=== PATIENT | male | born 1940 | race Caucasian/White ===

== ENCOUNTER 2019-12-04 21:04 | Inpatient (IN) | payer MEDICARE, OTHER ==
[~2019-12-04] VITALS: Ht 165.1 cm; Wt 47.3 kg
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
[2019-12-04 21:48] LABS: BASO # 0.1 x10^3/uL (0.0-0.2); BASO % 1 % (0-3); EOS # 0.2 x10^3/uL (0.0-0.7); EOS % 3 % (0-3); HEMATOCRIT 42.4 % (39.0-53.0); HEMOGLOBIN 13.9 g/dL (13.0-17.5); LYMPH # 1.6 x10^3/uL (1.0-4.8); LYMPH % 23 % (24-48); MEAN CORPUSCULAR HEMOGLOBIN 30 pg (25-35); MEAN CORPUSCULAR HGB CONC 33 g/dL (31-37); MEAN CORPUSCULAR VOLUME 91 fL (79-100); MONO # 0.6 x10^3/uL (0.0-1.1); MONO % 9 % (0-9); NEUT # 4.3 x10^3uL (1.8-7.7); NEUT % 64 % (31-73); PLATELET COUNT 183 x10^3/uL (140-400); RED BLOOD COUNT 4.64 x10^6/uL (4.30-5.70); RED CELL DISTRIBUTION WIDTH 14.7 % (11.5-14.5); WHITE BLOOD COUNT 6.7 x10^3/uL (4.0-11.0)
[2019-12-04 21:56] LABS: CALCIUM 8.9 mg/dL (8.5-10.1); CREATININE 0.7 mg/dL (0.7-1.3); GFR 108.2; POTASSIUM 3.7 mmol/L (3.5-5.1)
--- NOTE | 2019-12-04 21:56 | RAD ---
PORTABLE CHEST 1V Clinical indications: Fall. COMPARISON: None currently available. Findings: There is left infrahilar infiltrate or atelectasis. No pleural effusion or pneumothorax is seen. The heart size, pulmonary vasculature, mediastinum and both jolly are unremarkable. Multiple old appearing healed left rib cage fractures are seen. Impression: Left infrahilar infiltrate or atelectasis. Multiple old appearing healed left rib fractures are seen. Electronically signed by: Alexandro Branch MD (12/04/2019 9:53 PM) [facility]
[2019-12-04 21:59] LABS: BILIRUBIN,URINE NEG (NEG); CLARITY,URINE CLEAR; COLOR,URINE YELLOW; GLUCOSE,URINE NEG (NEG); NITRITE,URINE NEG (NEG); RBC,URINE OCC /HPF (0-2); UROBILINOGEN,URINE 0.2 mg/dL (0.2 mg/dL)
[2019-12-04 22:00] LABS: BACTERIA,URINE 0 /HPF (0-FEW); SQUAMOUS EPITHELIAL CELL,UR OCC /LPF; WBC,URINE OCC /HPF (0-4)
[2019-12-04 22:09] LABS: ALBUMIN 3.8 g/dL (3.4-5.0); DIRECT BILIRUBIN 0.2 mg/dL (0.0-0.2); TOTAL BILIRUBIN 0.6 mg/dL (0.2-1.0); TOTAL PROTEIN 7.4 g/dL (6.4-8.2)
[2019-12-04] MEDS ORDERED: CONTRAST GIVEN MC PRN (22:45)
[2019-12-04] MEDS ORDERED: IOHEXOL 350 MG/ML 100 ML VIAL. IV ONE (23:00)
--- NOTE | 2019-12-04 23:07 | EKG ---
[address] [address] Test Date: 2019-12-04 Test Time: 21:33:49 Pat Name: LEON ALEJANDRO Department: Room: Gender: M Science Faculty Member: : 1940 Requested By: JASON ALMARAZ Order Number: [id number] Reading MD: Measurements Intervals Perkins Rate: 93 P: -54 VT: 110 QRS: -16 QRSD: 80 T: 48 QT: 350 QTc: 438 Interpretive Statements SINUS RHYTHM COMPLEX(ES) WITH ABERRANT INTRAVENTRICULAR CONDUCTION VENTRICULAR PREMATURE COMPLEX(ES) ATRIAL PREMATURE COMPLEX(ES) LEFTWARD AXIS ABNORMAL ECG RI6.01 No previous ECG available for comparison
[2019-12-04 23:22] LABS: BARBITURATES NEG (NEG); BENZODIAZEPINES NEG (NEG); CANNABINOIDS NEG (NEG); COCAINE NEG (NEG); METHADONE NEG (NEG); OPIATES NEG (NEG); PHENCYCLIDINE NEG (NEG)
[2019-12-04 23:25] LABS: AMPHETAMINE/METHAMPHETAMINE NEG (NEG)
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
--- NOTE | 2019-12-04 23:45 | RAD ---
Exam: CT of chest with contrast INDICATION: Elevated d-dimer TECHNIQUE: Sequential axial images through the chest obtained following the administration of 100 mL of Omni 350 IV contrast. Sagittal and coronal reformatted images were reconstructed from the axial data and reviewed. 3-D reformatted images were reconstructed from the axial data and reviewed. Comparisons: None FINDINGS: Visualized portions of the thyroid are unremarkable. No enlarged mediastinal lymph nodes. Heart size is normal. There is a small pericardial effusion. Thoracic aorta has a normal course and caliber. Pulmonary artery is not enlarged. No pulmonary embolus is identified within the main, lobar or segmental pulmonary arteries. Airways are patent. There is mild bronchial wall thickening noted predominantly at the lower lungs. Moderate centrilobular emphysematous change noted greatest in the upper lungs. No pleural effusion or thickening. No suspicious lung nodules. No pleural effusion or thickening. Several hypoattenuating cystic lesions are noted within the liver which are incompletely characterized on this exam. Otherwise, visualized upper abdomen is unremarkable. Compression deformity of the T4 superior endplate and near complete vertebral plana of T6 vertebral body. No suspicious osseous lesions. IMPRESSION: 1. No pulmonary embolus identified within the main, lobar or segmental pulmonary arteries. 2. Bronchial thickening, greatest at the lower lungs, may relate to bronchitis. 3. Compression deformity of the T4 superior endplate and complete flattening of the T6 vertebral body. This is age indeterminate. Correlate with point tenderness. Exposure: One or more of the following in the visualized dose reduction techniques were utilized for this examination: 1. Automated exposure control 2. Adjustment of the MA and/or KV according to patient size 3. Use of iterative of reconstructive technique Electronically signed by: Chary Kearns MD (12/04/2019 11:42 PM) [place] [id number]
[2019-12-05] MEDS ORDERED: OLANZapine 2.5 MG TABLET PO ONE (02:00)
[2019-12-05] MEDS ORDERED: IPRATRPIUM/ALBUTEROL 0.5/2.5MG 3 ML NEBU. NEB ONE (02:00)
[2019-12-05] MEDS ORDERED: LORazepam 1 MG TABLET PO ONE (02:00)
[2019-12-05] MEDS ORDERED: ONDANSETRON PF 4 MG/2 ML VIAL. IV PRN (19:00)
[2019-12-05] MEDS ORDERED: MORPHINE SULFATE 2 MG/ML DISP.SYRIN. IV PRN (19:00)
[2019-12-05] MEDS ORDERED: LORazepam 1 MG TABLET PO PRN (19:00)
[2019-12-05 20:23] VITALS: BP 101/49
[2019-12-05] MEDS: IPRATRPIUM/ALBUTEROL 0.5/2.5MG 3 ML NEBU. NEB SCH (20:53)
[2019-12-05] MEDS ORDERED: MORP20SY PO (23:02)
[2019-12-05] MEDS ORDERED: ACET650S11 RC (23:02)
[2019-12-05] MEDS ORDERED: LORA-254 PO (23:02)
[2019-12-05] MEDS ORDERED: IPRA3AMP29 NEB (23:02)
[2019-12-05] MEDS ORDERED: TAMS0.4C97 PO (23:02)
[2019-12-05] MEDS ORDERED: ISOS30TA4 PO (23:02)
[2019-12-05] MEDS ORDERED: TRAM50TA PO (23:02)
[2019-12-05] MEDS ORDERED: NITR0.4T24 SL (23:02)
[2019-12-05] MEDS ORDERED: BISA10SU4 RC (23:02)
[2019-12-05] MEDS ORDERED: MELA10TA2 PO (23:02)
[2019-12-05] MEDS ORDERED: POLY2500 PO (23:02)
[2019-12-05] MEDS ORDERED: ESCITALOPRA5 MG/5 ML PO (23:02)
[2019-12-05] MEDS ORDERED: HYOS0.1264 PO (23:02)
[2019-12-05] MEDS ORDERED: GABA-585 PO (23:02)
[2019-12-05] MEDS ORDERED: PROC10TA2 PO (23:02)
[2019-12-06] VITALS (7 sets, daily range): BP systolic 115–136; BP diastolic 65–87
[2019-12-06] MEDS: ACETAMINOPHEN 325 MG TABLET PO PRN ×2 (00:44→08:47)
[2019-12-06] MEDS: IPRATRPIUM/ALBUTEROL 0.5/2.5MG 3 ML NEBU. NEB SCH ×3 (05:28→16:04)
[2019-12-06] MEDS: traMADol 50 MG TABLET PO PRN ×2 (11:44→21:50)
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
[2019-12-06] MEDS ORDERED: traZODone 50 MG TABLET. PO PRN (19:15)
--- NOTE | 2019-12-06 21:04 | PDOC ---
Exam Note: Alexander Note: Please also refer to the separate dictated note~for this date of service dictated separately.~Patient seen individually. Discussed the patient with Nursing staff reviewed the chart.~Reviewed interim history and current functioning. Reviewed vital signs,~Labs/ Radiology~and current medications noted below. Continue current treatment with the changes noted in the dictated addendum note Assessment: Vital Signs/I&O: Vital Signs Date Time Temp Pulse Resp B/P (MAP) Pulse Ox O2 Delivery O2 Flow Rate FiO2 12/06/19 19:51 98 22 129/71 (90) 93 Nasal Cannula 1.0 12/06/19 12:45 98.1 I & O 12/05/19 12/05/19 12/06/19 15:00 23:00 07:00 Intake Total 120 ml 420 ml Output Total 500 ml 150 ml 100 ml Balance -500 ml -30 ml 320 ml Current Medications: Meds: Current Medications Medications (Trade) Dose Ordered Sig/Ernesto Route PRN Reason Start Time Stop Time Status Last Admin Dose Admin Tramadol HCl (Ultram) 50 mg PRN Q6HRS PRN PO PAIN 12/06/19 11:15 12/06/19 11:44 I have reviewed the current psychotropics carefully including drug interactions. Risk benefit ratio favors no change other than as noted in my dictated progress note. 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
[2019-12-07 06:01] VITALS: BP 139/81
[2019-12-07] MEDS ORDERED: ISOSORBIDE MONONITRATE ER 30 MG TAB.ER.24H PO SCH (10:00)
[2019-12-07] MEDS ORDERED: NITROGLYCERIN SUBLINGUAL 0.4 MG BOTTLE OF 25. SL PRN (10:00)
[2019-12-07] MEDS ORDERED: LORazepam 0.5 MG TABLET PO PRN (10:00)
[2019-12-07] MEDS ORDERED: POLYETHYLENE GLYCOL 3350 17 GM PACKET. PO SCH (10:00)
[2019-12-07] MEDS ORDERED: traMADol 50 MG TABLET PO PRN (10:00)
[2019-12-07] MEDS ORDERED: TAMSULOSIN 0.4 MG CAP.ER.24H. PO SCH (10:00)
[2019-12-07] MEDS ORDERED: SCOPOLAMINE 1.5MG PATCH. TD SCH (10:00)
[2019-12-07] MEDS ORDERED: BISACODYL 10 MG SUPP.RECT RC PRN (10:00)
[2019-12-07] MEDS ORDERED: ACETAMINOPHEN 650 MG SUPP.RECT. RC PRN (10:00)
[2019-12-07] MEDS ORDERED: IPRATRPIUM/ALBUTEROL 0.5/2.5MG 3 ML NEBU. NEB PRN (10:00)
[2019-12-07] MEDS ORDERED: PROCHLORPERAZINE 5 MG TABLET. PO PRN (10:15)
[2019-12-07] MEDS ORDERED: MORPHINE SULFATE 20 MG/ML CONC SOLUTION. SL PRN (10:15)
[2019-12-07 10:20] VITALS: BP 136/88
[2019-12-07] MEDS: traMADol 50 MG TABLET PO PRN (10:23)
[2019-12-07 10:28] LABS: BGAS PH 7.46 (7.35-7.46)
[2019-12-07] MEDS ORDERED: PIPERACILLIN/TAZOBACTAM 3.375 GM in IV NORMAL SALINE 50ML 50 ML IV SCH (11:00)
[2019-12-07] MEDS ORDERED: VANCOMYCIN PER PHARMACY MC PRN (11:00)
[2019-12-07] MEDS ORDERED: AMOXICILLIN/K CLAV 500/125MG TABLET. PO SCH (11:00)
[2019-12-07] MEDS ORDERED: AMOX1TAB58 PO (11:11)
--- NOTE | 2019-12-07 11:15 | DISCH ---
DISCHARGE ORDERS DISCHARGE DATE: Dec 07, 2019 FINAL DIAGNOSIS End stage COPD HCAP CONDITION AT DISCHARGE: Guarded Code Status: DNR/DNI HOSPICE: Yes HOSPICE EVALUATE & TREAT: Yes POST DISCHARGE ORDERS: ACTIVITY ORDERS: Resume previous activity DIET AFTER DISCHARGE: Regular DISCHARGE MEDICATIONS: Home Meds Active Scripts Amoxicillin/Potassium Clav (AUGMENTIN 500-125 TABLET) 1 Each Tablet, 1 TAB PO BID for HCAP for 10 Days, #20 TAB 0 Refills Prov:FIDEL OLSON MD 12/07/19 Reported Medications Tramadol Hcl (TRAMADOL HCL) 50 Mg Tablet, 50 MG PO PRN Q6HRS PRN for PAIN, TAB 12/05/19 Prochlorperazine Maleate (PROCHLORPERAZINE MALEATE) 10 Mg Tablet, 1 TAB PO Q6HRS for nausea/vomiting, #30 TAB 3 Refills 12/05/19 Polyethylene Glycol 3350 (POLYETHYLENE GLYCOL 3350) 2,500 Gm Powder, 17 GM PO DAILY for constipation, #255 GM 0 Refills 12/05/19 Nitroglycerin (NITROSTAT) 0.4 Mg Tab.subl, 0.4 MG SL PRN Q5MIN PRN for CHEST PAIN, TAB 12/05/19 Morphine Sulfate (Morphine Sulfate) 20 Mg/1 Ml Syringe, 10 MG PO PRN Q2HR PRN for SHORTNESS OF BREATH, SYR 12/05/19 Melatonin (MELATONIN) 10 Mg Tab.mphase, 0.5 TAB PO QHS for sleep for 30 Days, #15 TAB 0 Refills 12/05/19 Escitalopram Oxalate (ESCITALOPRAM OXALATE ORAL SOLUTION) 5 Mg/5 Ml Solution, 10 ML PO DAILY for DEPRESSION for 30 Days, #300 ML 0 Refills 12/05/19 Hyoscyamine Sulfate (LEVSIN) 0.125 Mg Tablet, 1 TAB PO Q4HRS for EXCESS SECRETIONS for 20 Days, #120 TAB 0 Refills 12/05/19 Isosorbide Mononitrate (ISOSORBIDE MONONITRATE ER) 30 Mg Tab.er.24h, 1 TAB PO BID for HTN, #30 TAB 5 Refills 12/05/19 Gabapentin (GABAPENTIN ) 100 Mg Capsule, 100 MG PO TID for NEUROGENIC PAIN, CAP 12/05/19 Tamsulosin Hcl (FLOMAX) 0.4 Mg Cap.er.24h, 0.4 MG PO DAILY for urinary f requency, CAP.SR 1/20/20 Ipratropium/Albuterol Sulfate (DUONEB 0.5-3(2.5) MG/3 ML) 3 Ml Ampul.neb, 3 ML NEB QID PRN for SHORTNESS OF BREATH, EACH 12/05/19 Bisacodyl (BISACODYL) 10 Mg Supp.rect, 10 MG RC PRN DAILY PRN for CONSTIPATION, SUPP.RECT 0 Refills 12/05/19 Lorazepam (ATIVAN) 1 Mg Tablet, 0.5 TAB PO PRN Q4HRS PRN for ANXIETY / AGITATION MDD 2 Tablet(s) for 30 Days, TAB 0 Refills 12/05/19 Acetaminophen Supp (ACETAMINOPHEN SUPP) 650 Mg Supp.rect, 1 SUPP RC PRN Q4HRS PRN for fever for 1 Day, #6 SUPP 0 Refills 12/05/19 FIDEL OLSON MD Dec 07, 2019 11:15
[2019-12-07] MEDS ORDERED: VANCOMYCIN 1.25 GM in IV NORMAL SALINE 250ML 250 ML IV ONE (12:00)
[2019-12-07] MEDS ORDERED: HYOSCYAMINE SULFATE PO SCH (12:00)
[2019-12-07] MEDS ORDERED: GABAPENTIN 100 MG CAPSULE. PO SCH (14:00)
[2019-12-07] MEDS ORDERED: MELATONIN 3 MG TABLET PO SCH (21:00)
--- NOTE | 2019-12-07 22:46 | CONS ---
DATE OF CONSULTATION: 12/06/2019 PSYCHIATRIC: CONSULTATION NOTE This late entry 12/06/2019 covers elements not covered in my initial note. IDENTIFYING DATA: The patient is an 79-year-old male seen in bed [address], [address] [place] [address], for a psychiatric consult requested by Dr. Tanner on account of the patient's agitation and worsening confusion and altered mental status. He has been refusing cares at times, can be verbally abusive. He was sent to the Emergency Room from the [facility] in [place] due to disruptive behaviors there. There was no active DPOA to give consent for [facility] and he was admitted to [address] [place] [address] for medical stabilization and possible transfer to a different nursing facility. On the unit, the patient has had some sleep disturbance, some anxiety, but is redirectable. 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 He has been residing at the above facility for some time, but recently getting more agitated, disruptive, aggressive. He had an altercation with the [facility] staff and they are unable to manage him there. There is no clear history of bipolar disorder. PAST PSYCHIATRIC HISTORY: Positive for past history of alcohol abuse, progressive dementia. MEDICAL HISTORY: End-stage COPD, hypertension. He was on hospice care in the recent past. PAST SURGICAL HISTORY: Unobtainable. ALLERGIES: Negative. CURRENT PSYCHOTROPICS: Lexapro 10 mg a day, Ativan 0.5 mg q. 4 hours p.r.n. anxiety. FAMILY HISTORY: Noncontributory. SOCIAL HISTORY: The patient used to drive trucks. He states he has a past history of alcohol abuse. No DUIs, DTs or blackouts. MENTAL STATUS EXAMINATION: The patient was seen individually in his room. He is oriented to himself, situation, knew the president was president Margi, felt the year was 1987 and then changed it to . When asked about his children, he said he had no children, but his had 4 children and he seemed to have a sense of humor about this. Speech coherent, rapid at times consequent to anxiety. No suicidal or homicidal ideation. Attention span short. Short term memory is impaired. 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 PLAN: From a psychiatric standpoint, CT head shows atrophy, chronic microvascular changes, no acute changes. We will start trazodone 50 mg at bedtime, may repeat x 1 for insomnia. Rest unchanged for now. Proceed with placement as appropriate. MAN Tahira DALY MD DR: NING/skip JOB#: [id number] / [id number]
[2019-12-08] MEDS ORDERED: ESCITALOPRAM OXALATE PO SCH (09:00)
--- NOTE | 2019-12-08 14:35 | DS ---
DATE OF DISCHARGE: 12/07/2019 HOSPITAL COURSE: The patient is an 79-year-old male patient, who was a resident at [facility] in [place] since 10/24/2019. His primary care physician Dr. Jamarcus Lemus. Patient apparently had an altercation with snf staff, they no longer want him at the facility. The patient was sent to the Emergency Room of [facility] for placement at [facility]; however, no arrangements were made for transfer with the patient's insurance and preapproval was not completed. assisted staff aware that the patient was not accepted at [facility]. He was transferred to the Emergency Department without POA approval. Decision therefore was made to admit him to [address] [place] [address] initially for respite care. However, while here, he became more lethargic and short of breath and initially patient was accepted at [facility] and later by the end of the day, they changed their mind and refused to take him and as his condition deteriorated further, a decision was made to admit him to inpatient hospice to continue with hospice and end of life care. PHYSICAL EXAMINATION: GENERAL: When I examined him prior to the discharge, he was resting slightly propped up, slightly pale, tachypneic, but no jaundice, cyanosis or thyromegaly. No jugular venous distention or limb edema. VITAL SIGNS: His heart rate was 114, blood pressure was 132/67, temperature was 98, respiratory rate was 24, and oxygen saturation was 93%. HEAD, EYES, EARS, NOSE AND THROAT: Normocephalic, atraumatic. NECK: Supple. HEART: Showed normal first and second heart sounds. No gallop or murmur. CHEST: Shows central trachea, equal bilateral expansion, air entry, vesicular sounds. No crepitation or rhonchi. ABDOMEN: Distended, soft. NEUROLOGIC: He is very confused, agitated, but without any obvious lateralizing sign. All his cranial nerves are intact. He moves his upper extremities to much good extent than lower extremities, mostly bed bound. LABORATORY DATA: Showed his white cell count was 6700, hemoglobin 14, hematocrit 42, MCV 91, and platelet count of 103,000. His chemistry showed a serum sodium 142, potassium 3.7, chloride 104, bicarbonate 31, anion gap of 7, BUN 9, creatinine 0.7, estimated GFR was 108. Total bilirubin, AST, ALT, alkaline phosphatase were normal. His arterial blood gases showed a pH of 7.46, pCO2 of 37, pO2 of 56, bicarbonate 26 and oxygen saturation was 91% on FiO2 of 28%. DISCHARGE MEDICATIONS: He was discharged to inpatient hospice for end of life care to continue on Roxanol 20 mg per 1 mL solution to give 0.5 mL that is 10 mg every 2 hours as needed for pain or shortness of breath, Intensol 2 mg per 1 mL solution 0.5 mL that is 1 mg every 4 hours as needed for anxiety. Oxygen and Tylenol as well as scopolamine patch. FINAL DISCHARGE DIAGNOSES: End-stage chronic obstructive pulmonary disease. Healthcare-associated pneumonia, dementia, vascular, depression, behavioral disorders, anxiety disorder, impulse control disorder. FIDEL OLSON MD DR: BOONE/skip JOB#: [id number] / [id number]
== END 2019-12-07 17:50 | disposition hospice, inpatient (51) | DRG 881 ==
LOC: ER 21:04 → 1 SOUTH 12-05 18:30
PROVIDERS: ADMIT Internal Medicine; ATTEND Internal Medicine
DX: F32.9 Major depressive disorder, single episode, unspecified (principal); J18.9 Pneumonia, unspecified organism; J96.11 Chronic respiratory failure with hypoxia; J44.0 Chronic obstructive pulmonary disease with (acute) lower respiratory infection; J98.11 Atelectasis; F41.9 Anxiety disorder, unspecified; F63.9 Impulse disorder, unspecified; F01.50 Vascular dementia, unspecified severity, without behavioral disturbance, psychotic disturbance, mood disturbance, and anxiety; G30.9 Alzheimer's disease, unspecified; F02.80 Dementia in other diseases classified elsewhere, unspecified severity, without behavioral disturbance, psychotic disturbance, mood disturbance, and anxiety; I10 Essential (primary) hypertension; Z51.5 Encounter for palliative care; Y95 Nosocomial condition
CPT/HCPCS: 36415; 36600; 70450; 71045; 71275; 72125; 80048; 80076; 80307; 81001; 82550; 82803; 83690; 83735; 83880; 84443; 84484; 85025; 85379; 85610; 85730; 93005; 94640; G0480; J7620; Q5005; Q9967; 99285-25

== ENCOUNTER 2019-12-07 17:50 | Inpatient (IN) | payer OTHER ==
[~2019-12-07] VITALS: Ht 165.1 cm; Wt 90.5 kg
[~2019-12-07 17:50] MED LIST: ACET650S11 RC; AMOX1TAB58 PO; BISA10SU4 RC; ESCITALOPRA5 MG/5 ML PO; GABA-585 PO; HYOS0.1264 PO; IPRA3AMP29 NEB; ISOS30TA4 PO; LORA-254 PO; MELA10TA2 PO; MORP20SY PO; NITR0.4T24 SL; POLY2500 PO; PROC10TA2 PO; TAMS0.4C97 PO; TRAM50TA PO
[2019-12-07] MEDS ORDERED: ACETAMINOPHEN 650 MG SUPP.RECT. PR PRN ×2 (18:15→19:45)
[2019-12-07] MEDS ORDERED: ONDANSETRON PF 4 MG/2 ML VIAL. IVP PRN (19:00)
[2019-12-07 19:39] VITALS: BP 95/57
[2019-12-07] MEDS ORDERED: MORPHINE SULFATE 20 MG/ML CONC SOLUTION. SL SCH (20:00)
[2019-12-07] MEDS ORDERED: MORPHINE SULFATE 20 MG/ML CONC SOLUTION. SL PRN (20:00)
[2019-12-07] MEDS: MORPHINE SULFATE 20 MG/ML CONC SOLUTION. SL SCH ×2 (21:30→23:29)
[2019-12-08] MEDS: MORPHINE SULFATE 20 MG/ML CONC SOLUTION. SL SCH ×5 (01:44→10:01)
[2019-12-08 05:15] VITALS: BP 132/67
[2019-12-08] MEDS: MORPHINE SULFATE 4 MG/ML DISP.SYRIN. IV SCH ×6 (11:22→22:47)
--- NOTE | 2019-12-08 16:37 | HP ---
ADMIT DATE: HISTORY OF PRESENT ILLNESS: The patient is an 79-year-old male patient who was initially admitted for Respite care; however, his condition has deteriorated. The [facility] refused to take him back and after he was accepted ____ they refused to take him and unfortunately the patient's condition has dramatically deteriorated, became more lethargic, extremely short of breath and therefore, a decision was made to admit him to inpatient hospice for end of life care. He was admitted and was started on morphine, lorazepam as well as scopolamine patch and when I saw him this morning, he was resting, slightly propped up, sleeping comfortably. All his vital signs are stable. ASSESSMENT: 1. Acute on chronic hypoxic respiratory failure. 2. Advanced end-stage chronic obstructive pulmonary disease. 3. Advanced dementia, questionable aspiration pneumonia. My plan is to continue with comfort care. Continue with morphine sulfate 4 mg IV every 2 hours, ____ 0.5 mg every 4 hours. The nursing staff was given instruction to increase the dose of frequency to make the patient comfortable. FIDEL OLSON MD DR: BOONE/skip JOB#: [id number] / [id number]
[2019-12-08 16:47] VITALS: BP 116/64
[2019-12-08 20:39] VITALS: BP 108/66
[2019-12-09] MEDS: MORPHINE SULFATE 4 MG/ML DISP.SYRIN. IV SCH ×12 (00:31→22:42)
[2019-12-09] MEDS ORDERED: ATROPINE 1% OPHTH SOLUTION 5ML BOTTLE. SL ONE (12:00)
--- NOTE | 2019-12-09 15:24 | PN ---
DATE: 12/09/2019 ATTENDING PHYSICIAN: Dr. Tanner. CHIEF COMPLAINT: Confusion. SUBJECTIVE: The patient is obtunded and nonresponsive. OBJECTIVE FINDINGS: GENERAL: He has audible rattles. He is gurgling. He is not aware of person, place or time. VITAL SIGNS: His blood pressure is 110 systolic. His oxygen saturation on 2 liters are 96%. Arterial blood gases on admission showed a pH of 7.46, pCO2 of 37 mmHg, pO2 of 56 mmHg on 2 liters of supplemental oxygen. Chest x-ray as noted chronic changes with infiltrates at bases. HEENT: Pupils are reactive. Sclerae nonicteric. Oropharynx patent. NECK: Supple. LUNGS: Coarse rhonchi bilaterally. CARDIOVASCULAR: Showed distant heart tones. No obvious gallops. Peripheral pulses are palpable and weak. ABDOMEN: Soft, scaphoid, nontender, no organomegaly. Bowel sounds are hypoactive. EXTREMITIES: Show trace edema. NEUROLOGIC: Function focally intact. LABORATORY DATA: Labs as noted. ASSESSMENT: 1. An 79-year-old gentleman with acute on chronic respiratory failure. 2. Profound dementia. 3. Probable aspiration. 4. Degenerative arthritis. The patient is actively dying. PLAN: 1. Comfort measures. Morphine and Ativan has been ordered. 2. Supplemental oxygen. 3. Family is en route to see him. His prognosis is terminal. SATYA CEDILLO MD DR: SUSAN/skip JOB#: [id number] / [id number] FIDEL Camacho MD
[2019-12-09 19:53] VITALS: BP 119/66
[2019-12-10] MEDS: MORPHINE SULFATE 4 MG/ML DISP.SYRIN. IV SCH ×12 (00:17→22:18)
[2019-12-10] MEDS ORDERED: SCOPOLAMINE 1.5MG PATCH. TD SCH ×2 (09:00)
[2019-12-10 09:16] VITALS: BP 138/65
--- NOTE | 2019-12-10 10:13 | PN ---
DATE: 12/10/2019 ATTENDING PHYSICIAN: Dr. Tanner. CHIEF COMPLAINT: Confusion. SUBJECTIVE: The patient remains obtunded and nonresponsive. He has gurgling consistent with rattles. The family was here last night. There is no one in the room with him today. OBJECTIVE: GENERAL: He has audible gurgling. He is not aware of person, place or time. Does not respond to any stimulus. VITAL SIGNS: His oxygen saturation about 94%. Arterial blood gases drawn on admission showed diminished oxygen on room air. His pupils are reactive. Sclerae are nonicteric. The oropharynx is patent. Mucous membranes dry. NECK: Supple. LUNGS: He has coarse rhonchi bilaterally. CARDIOVASCULAR: Shows very distant heart tones. No obvious gallops, no murmurs. Peripheral pulses are palpable and weak. ABDOMEN: Soft, scaphoid, nontender, no guarding or rebound tenderness. Bowel sounds are hypoactive. EXTREMITIES: Showed trace edema. NEUROLOGIC: The patient remains obtunded. LABORATORY DATA: As noted. ASSESSMENT: 1. This 79-year-old gentleman has acute on chronic respiratory failure. 2. Profound dementia. 3. Probable aspiration. 4. Degenerative arthritis. 5. The patient is actively dying. PLAN: 1. Comfort measures with morphine, Ativan has been continued. 2. Supplemental oxygen. 3. Family is here to see the patient stated by. I do believe that he is actively dying and will soon. SATYA CEDILLO MD DR: SUSAN/skip JOB#: [id number] / [id number]
[2019-12-10 19:20] VITALS: BP 113/77
[2019-12-10 23:23] VITALS: BP 113/64
[2019-12-11] MEDS: MORPHINE SULFATE 4 MG/ML DISP.SYRIN. IV SCH ×12 (00:36→22:02)
[2019-12-11 04:33] VITALS: BP 112/73
[2019-12-11 08:30] VITALS: BP 87/82
[2019-12-11 08:32] VITALS: BP 89/82
--- NOTE | 2019-12-11 11:07 | PN ---
DATE: 12/11/2019 ATTENDING PHYSICIAN: Dr. Tanner. CHIEF COMPLAINT: Confusion. SUBJECTIVE: The patient remains obtunded. He is comfortable. He is in no acute distress, but he is nonresponsive this time. OBJECTIVE FINDINGS: GENERAL: He has audible gurgling, although respirations are diminished. VITAL SIGNS: Showed a blood pressure of 89 mmHg systolic. Oxygen saturations are about 92%. His skin is pale and cool. HEENT: Head is without trauma. Pupils are reactive. Sclerae nonicteric. Oropharynx, dry mucous membranes. NECK: Supple. LUNGS: Coarse rhonchi bilaterally with diminished breath sounds. CARDIOVASCULAR: Showed distant heart tones. Peripheral pulses are palpable and weak. ABDOMEN: Soft, scaphoid, nontender, no guarding or rigidity. EXTREMITIES: Show trace edema. NEUROLOGIC: The patient is obtunded. ASSESSMENT: 1. This 79-year-old gentleman has acute on chronic respiratory failure. 2. Underlying dementia that is profound. 3. Probable aspiration. 4. Degenerative arthritis. 5. The patient is actively dying. PLAN: 1. Comfort measures. Morphine and Ativan will be continued. 2. Supplemental oxygen. 3. Family is aware and keeping a ibarra for his imminent demise. SATYA CEDILLO MD DR: SUSAN/skip JOB#: [id number] / [id number]
[2019-12-12] MEDS: MORPHINE SULFATE 4 MG/ML DISP.SYRIN. IV SCH ×18 (00:06→23:19)
[2019-12-12 11:25] VITALS: BP 113/70
[2019-12-13] MEDS: MORPHINE SULFATE 4 MG/ML DISP.SYRIN. IV SCH ×3 (00:12→02:47)
--- NOTE | 2019-12-13 02:02 | PN ---
DATE: 12/12/2019 SUBJECTIVE: The patient was admitted to hospice care that was done as an inpatient given that it was difficult to place him on any other facility and was declining. When I saw him today, he was clearly distressed, tachypneic with crackles on both sides of the chest. His respiratory rate was 30 and oxygen saturation was 95% on 4 liters of oxygen. The nursing staff was instructed to increase the frequency as he clearly appears distressed, so I increased his morphine to 4 mg every hour and also lorazepam every 2 hours to keep him comfortable. ASSESSMENT: An 79-year-old gentleman with acute on chronic respiratory failure; underlying dementia, profound; probably aspiration pneumonia; degenerative joint arthritis. PLAN: To continue with comfort care. Increase his morphine to 4 mg every hour and Ativan every 2 hours. Continue with supplemental oxygen. Family was contacted and aware of his progression. Dictation Ends Here. FIDEL OLSON MD DR: BOONE/skip JOB#: [id number] / [id number]
--- NOTE | 2019-12-23 10:48 | DS ---
DATE OF DISCHARGE: 12/13/2019 SUMMARY HOSPITAL COURSE: The patient is an 79-year-old male patient who was initially admitted for respite care; however, his condition has dramatically deteriorated. The [facility] refused to take him back after he was accepted at another facility; however, he became more lethargic, extremely short of breath and therefore, a decision was made to admit him for inpatient hospice care for end of life care. He was started on morphine, lorazepam as well as scopolamine and he gradually deteriorated and at around 3:30 a.m., he was found to be unresponsive to verbal or tactile stimuli and no breath sounds. No chest movement. No palpable pulsation or audible heartbeat and was pronounced around 3:30 on 12/13/2019 and the cause of is cardiopulmonary arrest, acute respiratory failure, aspiration pneumonia and chronic obstructive pulmonary disease, severe dementia with recurrent aspiration. FIDEL OLSON MD DR: BOONE/skip JOB#: [id number] / [id number]
== END 2019-12-13 05:10 | disposition expired | DRG 177 ==
LOC: 1 SOUTH 17:50
PROVIDERS: ADMIT Internal Medicine; ATTEND Internal Medicine
DX: J69.0 Pneumonitis due to inhalation of food and vomit (principal); J96.21 Acute and chronic respiratory failure with hypoxia; J44.0 Chronic obstructive pulmonary disease with (acute) lower respiratory infection; I46.9 Cardiac arrest, cause unspecified; J44.9 Chronic obstructive pulmonary disease, unspecified; F03.90 Unspecified dementia, unspecified severity, without behavioral disturbance, psychotic disturbance, mood disturbance, and anxiety; M19.90 Unspecified osteoarthritis, unspecified site; Z51.5 Encounter for palliative care
CPT/HCPCS: J2060; J2270; Q5005